=== PATIENT | male | born 1995 | race Caucasian/White ===

== ENCOUNTER → 2019-11-19 | Outpatient (CLI) | payer BC ==
--- NOTE | 2019-11-19 16:16 | EKG ---
[facility] [place] [address] ELECTROCARDIOGRAM REPORT Name: ESTIVEN HOLLOWAY Room #: REG CLI [facility].#: [id number] Admission: 11/19/19 Attend Phys: Physician not on staff Discharge: Date of : [birth year] Report #: [id number] THIS REPORT FOR: cc: GLEN CONDON MD Physician not on staff Micheal Goncalves MD [facility] THIS REPORT FOR: //name// [facility] Test Date: 2019-11-19 Test Time: 15:07:20 Pat Name: ESTIVEN HOLLOWAY Department: Room: Gender: [employer] Officer: Nirmala JONES : 1995 Requested By: Physician staff Order Number: [id number] MD: Micheal Goncalves Measurements Intervals [place] Rate: 71 P: 71 GA: 144 QRS: 90 QRSD: 87 T: 74 QT: 377 QTc: 410 Interpretive Statements Sinus rhythm Borderline right axis deviation Normal tracing No previous ECG available for comparison Electronically Signed On 11-19-2019 16:15:03 CDT by Micheal Goncalves [email or web address] <ELECTRONICALLY SIGNED> By: Micheal Goncalves MD, [facility] 11/19/19 1615 1507 06 Micheal Goncalves MD, FACC /EPI
== END ==
LOC: CV 14:43
DX: R00.2 Palpitations (principal)